=== PATIENT | female | born 1990 | race Two or more races ===

== ENCOUNTER 2020-10-01 12:00 | Inpatient (IN) | payer OTHER ==
[~2020-10-01] VITALS: Ht 160 cm; Wt 88.5 kg
[2020-11-06] MEDS ORDERED: PRENATAL TABLE1 EAC1 PO (15:59)
[2020-11-10] MEDS ORDERED: KETO10TA2 PO (09:23)
[2020-11-10] MEDS ORDERED: OXYC1TAB9 PO (09:23)
== END 2020-11-10 14:10 | disposition home or self-care (01) | DRG 788 ==
LOC: OB/GYN 11-05 14:00 → LDR 11-06 15:13 → SURG-SUITE 11-07 20:21
PROVIDERS: ADMIT Obstetrics & Gynecology; ATTEND Obstetrics & Gynecology
PROC: 4A1HXFZ Monitoring of Products of Conception, Cardiac Rhythm, External Approach (ICD-10-PCS; 2020-11-07)
PROC: 3E0P7VZ Introduction of Hormone into Female Reproductive, Via Natural or Artificial Opening (ICD-10-PCS; 2020-11-07)
PROC: 3E033VJ Introduction of Other Hormone into Peripheral Vein, Percutaneous Approach (ICD-10-PCS; 2020-11-07)
PROC: 10D00Z1 Extraction of Products of Conception, Low, Open Approach (ICD-10-PCS; principal; 2020-11-07 14:00)
DX: O61.0 Failed medical induction of labor (principal); Z3A.40 40 weeks gestation of pregnancy; Z37.0 Single live birth; Z20.828 Contact with and (suspected) exposure to other viral communicable diseases

== ENCOUNTER 2020-10-22 08:51 | Outpatient (CLI) | payer OTHER | END 2020-10-22 11:26 | disposition home or self-care (01) | LOC: NST 08:51 | PROVIDERS: ATTEND Obstetrics & Gynecology | DX: Z34.83 Encounter for supervision of other normal pregnancy, third trimester (principal) ==

== ENCOUNTER 2020-10-26 08:48 | Outpatient (CLI) | payer OTHER | END 2020-10-26 10:02 | disposition home or self-care (01) | LOC: NST 08:48 | PROVIDERS: ATTEND Obstetrics & Gynecology | DX: Z34.83 Encounter for supervision of other normal pregnancy, third trimester (principal) ==

== ENCOUNTER 2020-11-01 12:38 | Outpatient (CLI) | payer OTHER | END 2020-11-01 13:00 | disposition home or self-care (01) | LOC: NST 12:38 | PROVIDERS: ATTEND Obstetrics & Gynecology Maternal & Fetal Medicine | DX: Z34.83 Encounter for supervision of other normal pregnancy, third trimester (principal) ==

== ENCOUNTER 2020-11-05 10:46 | Outpatient (CLI) | payer OTHER ==
[2020-11-06] MEDS ORDERED: PRENATAL TABLE1 EAC1 PO (15:59)
== END 2020-11-05 11:18 | disposition home or self-care (01) ==
LOC: NST 10:46
PROVIDERS: ATTEND Obstetrics & Gynecology Maternal & Fetal Medicine
DX: Z34.83 Encounter for supervision of other normal pregnancy, third trimester (principal)